=== PATIENT | female | born 1985 | race African-American/Black ===

== ENCOUNTER 2016-09-07 16:08 | Emergency (ER) | payer MEDICAID ==
[~2016-09-07] VITALS: Ht 162.6 cm; Wt 68.0 kg
[2016-09-07] MEDS ORDERED: MORPHINE SULFATE 4 MG/ML CPJ (NOT FOR IM USE) IV STA (16:58)
[2016-09-07] MEDS ORDERED: SODIUM CHLORIDE 0.9% 1,000 ML IV ONE (16:58)
[2016-09-07] MEDS ORDERED: ONDANSETRON HCL 4MG/2ML VIAL IV STA (16:58)
[2016-09-07 17:44] LABS: CLARITY URINE CLEAR (CLEAR); COLOR URINE YELLOW (YELLOW); GLUCOSE URINE NEGATIVE (NEGATIVE); KETONES URINE 4+ (NEGATIVE); LEUKOCYTE ESTERASE URINE 1+ (NEGATIVE); NITRITE URINE NEGATIVE (NEGATIVE); OCCULT BLOOD URINE NEGATIVE (NEGATIVE); PROTEIN URINE TRACE (NEGATIVE); SPECIFIC GRAVITY URINE 1.016 (1.005-1.030)
[2016-09-07 18:07] LABS: BACTERIA URINE TRACE; SQUAMOUS EPITHELIAL CELL URINE 1+ /lpf (RARE/1+); WBC URINE 0-2 /hpf (0-2)
[2016-09-07 18:13] LABS: BASOPHILS % 0.8 % (0.0-2.0); EOSINOPHILS % 0.6 % (0.0-5.0); HEMATOCRIT. 32.3 % (36.0-48.0); HEMOGLOBIN. 10.8 g/dL (12.0-16.0); LYMPHOCYTES % 16.5 % (20.0-50.0); MEAN CORPUSCULAR HEMOGLOBIN 29.8 pg (28.0-32.0); MEAN CORPUSCULAR HGB CONC 33.4 g/dL (31.0-37.0); MEAN CORPUSCULAR VOLUME 89.3 fL (81.0-99.0); MEAN PLATELET VOLUME 7.5 fl (7.4-10.4); MONOCYTES % 6.8 % (2.0-8.0); NEUTROPHILS % 75.3 % (40.0-76.0); PLATELET 321 x1000/uL (130-400); RED BLOOD CELL COUNT 3.61 mill/uL (4.2-5.4); RED CELL DISTRIBUTION WIDTH 14.1 % (11.6-14.6); WHITE BLOOD COUNT 9.9 x1000/uL (4.5-11.0)
[2016-09-07 18:19] LABS: CHLORIDE 102 mEq/L (98-107); INDEX HEMOLYSI 1 (1-3); INDEX ICTERIC 1 (1-4); INDEX LIPEMIC 1 (1-3); INR 1.1
[2016-09-07 18:26] LABS: ALANINE AMINOTRANSFERASE 12 IU/L (13-61); ALBUMIN 2.7 g/dL (3.4-5.0); ANION GAP 13; CALCIUM 8.3 mg/dL (8.5-10.1); CARBON DIOXIDE 25 mEq/L (21-32); LIPASE 172 IU/L (73-393); UREA NITROGEN BLOOD 3 mg/dL (7-21); eGFR > 60 mL/min (>60)
[2016-09-07 18:43] LABS: B-HCG QUANTITATIVE 7175 mIU/mL (<3)
[2016-09-07] MEDS ORDERED: MAGNESIUM/ALUMINUM HYDROXIDE/SIMETHICONE 30ML UDC PO STA ×2 (18:54→19:55)
[2016-09-07] MEDS ORDERED: FAMOTIDINE 20MG TABLET PO ONE ×2 (19:00→20:00)
[2016-09-07] MEDS ORDERED: RHO(D) IMMUNE GLOBULIN 300 MCG/SYR IM ONE (20:00)
[2016-09-07] MEDS ORDERED: POTASSIUM CHLORIDE 20MEQ TABLET SR PO ONE (20:15)
[2016-09-07 20:38] VITALS: BP 130/81
[2016-09-08] MEDS ORDERED: ONDA4TAB5 PO (17:27)
[2016-09-08] MEDS ORDERED: NITR100C2 PO (17:27)
[2016-09-08] MEDS ORDERED: PRENAVITE (17:27)
[2016-09-08] MEDS ORDERED: FAMO20TA8 PO (17:27)
== END 2016-09-07 20:42 | disposition home or self-care (01) ==
LOC: ER 16:22
DX: O23.43 Unspecified infection of urinary tract in pregnancy, third trimester (principal); N39.0 Urinary tract infection, site not specified; O99.513 Diseases of the respiratory system complicating pregnancy, third trimester; J45.909 Unspecified asthma, uncomplicated; Z3A.23 23 weeks gestation of pregnancy
CPT/HCPCS: 36415; 76705; 76805; 80053; 81001; 81025; 83690; 84702; 85025; 85610; 86850; 86900; 86901; 96361; 96374; 99285; J2405; J7030; 90384; J2270

== ENCOUNTER 2016-09-08 17:21 | Emergency (ER) | payer MEDICAID ==
[~2016-09-08] VITALS: Ht 160 cm; Wt 75.0 kg
[2016-09-08] MEDS ORDERED: ONDA4TAB5 PO (17:27)
[2016-09-08] MEDS ORDERED: FAMO20TA8 PO (17:27)
[2016-09-08] MEDS ORDERED: NITR100C2 PO (17:27)
[2016-09-08] MEDS ORDERED: PRENAVITE (17:27)
[2016-09-08] MEDS ORDERED: SODIUM CHLORIDE 0.9% 1,000 ML IV NR (18:45)
[2016-09-08] MEDS ORDERED: ACETAMINOPHEN 500MG TABLET PO ONE (19:00)
[2016-09-08] MEDS ORDERED: ONDANSETRON HCL 4MG/2ML VIAL IV ONE (19:00)
[2016-09-08 19:06] LABS: CLARITY URINE CLOUDY (CLEAR); COLOR URINE YELLOW (YELLOW); GLUCOSE URINE NEGATIVE (NEGATIVE); KETONES URINE 2+ (NEGATIVE); LEUKOCYTE ESTERASE URINE TRACE (NEGATIVE); NITRITE URINE NEGATIVE (NEGATIVE); OCCULT BLOOD URINE NEGATIVE (NEGATIVE); PROTEIN URINE NEGATIVE (NEGATIVE); SPECIFIC GRAVITY URINE 1.012 (1.005-1.030)
[2016-09-08 19:15] LABS: *AMPHETAMINES SCREEN URINE NEGATIVE (NEGATIVE); *BARBITURATES SCREEN URINE NEGATIVE (NEGATIVE); *BENZODIAZEPINES SCREEN URINE NEGATIVE (NEGATIVE); *COCAINE SCREEN URINE NEGATIVE (NEGATIVE); ECSTASY MDMA SCREEN URINE NEGATIVE (NEGATIVE); METHADONE URINE SCREEN NEGATIVE (NEGATIVE); OPIATES URINE SCREEN NEGATIVE (NEGATIVE); PHENCYCLIDINE URINE SCREEN NEGATIVE (NEGATIVE)
[2016-09-08 19:16] LABS: CANNABINOID URINE SCREEN PRESUMTIVE POSITIVE (NEGATIVE)
[2016-09-08 19:23] LABS: BASOPHILS % 0.3 % (0.0-2.0); EOSINOPHILS % 1.1 % (0.0-5.0); HEMATOCRIT. 33.5 % (36.0-48.0); HEMOGLOBIN. 11.3 g/dL (12.0-16.0); LYMPHOCYTES % 20.6 % (20.0-50.0); MEAN CORPUSCULAR HEMOGLOBIN 29.6 pg (28.0-32.0); MEAN CORPUSCULAR HGB CONC 33.6 g/dL (31.0-37.0); MEAN CORPUSCULAR VOLUME 88.1 fL (81.0-99.0); MEAN PLATELET VOLUME 7.2 fl (7.4-10.4); PLATELET 343 x1000/uL (130-400); RED BLOOD CELL COUNT 3.81 mill/uL (4.2-5.4); RED CELL DISTRIBUTION WIDTH 14.1 % (11.6-14.6); WHITE BLOOD COUNT 8.9 x1000/uL (4.5-11.0)
[2016-09-08 19:29] LABS: PARTIAL THROMBOPLASTIN TIME 25.4 sec (24.0-34.0); PROTHROMBIN TIME 10.9 sec
[2016-09-08 19:30] LABS: ALBUMIN 2.8 g/dL (3.4-5.0); ANION GAP 14; CALCIUM 8.6 mg/dL (8.5-10.1); CARBON DIOXIDE 25 mEq/L (21-32); CHLORIDE 101 mEq/L (98-107); INDEX HEMOLYSI 1 (1-3); INDEX ICTERIC 1 (1-4); INDEX LIPEMIC 1 (1-3); LIPASE 209 IU/L (73-393); UREA NITROGEN BLOOD 5 mg/dL (7-21)
[2016-09-08 19:31] LABS: ETHANOL BLOOD < 10 mg/dL
[2016-09-08 19:33] LABS: ALANINE AMINOTRANSFERASE 14 IU/L (13-61); eGFR > 60 mL/min (>60)
[2016-09-08 19:38] LABS: TROPONIN I < 0.02 ng/mL (0.00-0.04)
[2016-09-08] MEDS ORDERED: VISCOUS LIDOCAINE 2% 15 ML UDC MM ONE (19:45)
[2016-09-08 19:49] LABS: BACTERIA URINE 1+
[2016-09-08 19:50] LABS: AMORPHOUS SEDIMENT URINE 1+ /lpf; RBC URINE 0-2 /hpf (0-2); SQUAMOUS EPITHELIAL CELL URINE 1+ /lpf (RARE/1+); WBC URINE 0-2 /hpf (0-2)
[2016-09-08] MEDS ORDERED: CEFTRIAXONE 1 G PREMIX 50 ML IV ONE (20:00)
[2016-09-08 20:05] LABS: B-HCG QUANTITATIVE 7361 mIU/mL (<3)
[2016-09-08] MEDS ORDERED: KCL 10MEQ/50ML PREMIX 50 ML IV ONE (20:30)
[2016-09-08] MEDS ORDERED: SODIUM CHLORIDE 0.9% 1,000 ML IV ONE (20:48)
[2016-09-08] MEDS ORDERED: VISCOUS LIDOCAINE 2% 15 ML UDC PO STA (21:41)
[2016-09-08] MEDS ORDERED: LANSOPRAZOLE 30MG DR CAPSULE PO ONE (21:45)
[2016-09-09 00:09] VITALS: BP 121/80
== END 2016-09-09 00:16 | disposition home or self-care (01) ==
LOC: ER 17:22
DX: O23.42 Unspecified infection of urinary tract in pregnancy, second trimester (principal); O99.322 Drug use complicating pregnancy, second trimester; F12.10 Cannabis abuse, uncomplicated; K21.9 Gastro-esophageal reflux disease without esophagitis; E87.6 Hypokalemia; Z3A.21 21 weeks gestation of pregnancy
CPT/HCPCS: 36415; 80053; 80305; 81001; 81025; 83690; 84484; 84702; 85025; 85610; 85730; 93005; 96361; 96374; 96375; 99284; G0482; J0696; J2405; J3480; J7030; Z7610

== ENCOUNTER 2016-10-05 11:03 | Observation (INO) | payer MEDICAID ==
[~2016-10-05] VITALS: Ht 160 cm; Wt 77.1 kg
[~2016-10-05 11:03] MED LIST: FAMO20TA8 PO; NITR100C2 PO; ONDA4TAB5 PO; PRENAVITE
[2016-10-05] MEDS ORDERED: DEXT 5%/LACTATED RINGERS 1,000 ML IV SCH (11:30)
[2016-10-05] MEDS ORDERED: ONDANSETRON HCL 4MG/2ML VIAL IV SCH (11:30)
[2016-10-05 12:16] LABS: BASOPHILS % 0.5 % (0.0-2.0); EOSINOPHILS % 0.3 % (0.0-5.0); HEMATOCRIT. 33.9 % (36.0-48.0); HEMOGLOBIN. 11.1 g/dL (12.0-16.0); LYMPHOCYTES % 12.3 % (20.0-50.0); MEAN CORPUSCULAR HEMOGLOBIN 28.9 pg (28.0-32.0); MEAN CORPUSCULAR HGB CONC 32.7 g/dL (31.0-37.0); MEAN CORPUSCULAR VOLUME 88.3 fL (81.0-99.0); MEAN PLATELET VOLUME 8.2 fl (7.4-10.4); MONOCYTES % 4.2 % (2.0-8.0); NEUTROPHILS % 82.7 % (40.0-76.0); PLATELET 311 x1000/uL (130-400); RED BLOOD CELL COUNT 3.84 mill/uL (4.2-5.4); RED CELL DISTRIBUTION WIDTH 14.4 % (11.6-14.6); WHITE BLOOD COUNT 14.9 x1000/uL (4.5-11.0)
[2016-10-05 12:33] LABS: CLARITY URINE CLEAR (CLEAR); COLOR URINE YELLOW (YELLOW); GLUCOSE URINE TRACE (NEGATIVE); KETONES URINE 1+ (NEGATIVE); LEUKOCYTE ESTERASE URINE NEGATIVE (NEGATIVE); NITRITE URINE NEGATIVE (NEGATIVE); OCCULT BLOOD URINE NEGATIVE (NEGATIVE); PH URINE >=9.0 (4.5-8.0); PROTEIN URINE 2+ (NEGATIVE); SPECIFIC GRAVITY URINE 1.013 (1.005-1.030)
[2016-10-05 12:40] LABS: CARBON DIOXIDE 28 mEq/L (21-32); CHLORIDE 105 mEq/L (98-107)
[2016-10-05 12:41] LABS: ALANINE AMINOTRANSFERASE 13 IU/L (13-61); ALBUMIN 2.9 g/dL (3.4-5.0); ANION GAP 11; INDEX HEMOLYSI 2 (1-3); INDEX ICTERIC 1 (1-4); INDEX LIPEMIC 1 (1-3); UREA NITROGEN BLOOD 5 mg/dL (7-21); eGFR > 60 mL/min (>60)
[2016-10-05 12:59] LABS: *AMPHETAMINES SCREEN URINE NEGATIVE (NEGATIVE); *BARBITURATES SCREEN URINE NEGATIVE (NEGATIVE); *BENZODIAZEPINES SCREEN URINE NEGATIVE (NEGATIVE); *COCAINE SCREEN URINE NEGATIVE (NEGATIVE); ECSTASY MDMA SCREEN URINE NEGATIVE (NEGATIVE); METHADONE URINE SCREEN NEGATIVE (NEGATIVE); OPIATES URINE SCREEN NEGATIVE (NEGATIVE); PHENCYCLIDINE URINE SCREEN NEGATIVE (NEGATIVE); SQUAMOUS EPITHELIAL CELL URINE 1+ /lpf (RARE/1+)
[2016-10-05 13:00] LABS: RBC URINE NONE SEEN /hpf (0-2); WBC URINE 0-2 /hpf (0-2)
[2016-10-05 13:01] LABS: BACTERIA URINE 1+; CANNABINOID URINE SCREEN PRESUMTIVE POSITIVE (NEGATIVE); YEAST URINE 1+
[2016-10-05] MEDS ORDERED: CITRIC ACID/SODIUM CITRATE SOLN 30ML UDC PO NR (13:30)
[2016-10-05 13:33] LABS: AMYLASE 117 IU/L (25-115); INDEX HEMOLYSI 2 (1-3); LIPASE 230 IU/L (73-393)
== END 2016-10-05 13:50 | disposition home or self-care (01) ==
LOC: L&D 11:03
PROVIDERS: ADMIT Obstetrics & Gynecology; ATTEND Obstetrics & Gynecology
DX: O26.893 Other specified pregnancy related conditions, third trimester (principal); R10.10 Upper abdominal pain, unspecified; Z3A.00 Weeks of gestation of pregnancy not specified
CPT/HCPCS: 36415; 80053; 80305; 80349; 81001; 82150; 83690; 85025; 96374; G0378; J2405; J7121

== ENCOUNTER 2016-10-05 13:54 | Emergency (ER) | payer MEDICAID | END 2016-10-05 14:45 | disposition left against medical advice (07) | LOC: ER 14:40 | DX: R11.10 Vomiting, unspecified (principal); Z53.21 Procedure and treatment not carried out due to patient leaving prior to being seen by health care provider ==

== ENCOUNTER 2016-10-06 02:20 | Observation (INO) | payer MEDICAID ==
[~2016-10-06] VITALS: Ht 160 cm; Wt 61.2 kg
[~2016-10-06 02:20] MED LIST changes: -NITR100C2 PO; -ONDA4TAB5 PO
== END 2016-10-06 03:29 | disposition home or self-care (01) ==
LOC: L&D 02:20
PROVIDERS: ADMIT Obstetrics & Gynecology; ATTEND Obstetrics & Gynecology
DX: O21.2 Late vomiting of pregnancy (principal); O26.893 Other specified pregnancy related conditions, third trimester; R10.84 Generalized abdominal pain; R12 Heartburn; Z3A.28 28 weeks gestation of pregnancy
CPT/HCPCS: G0378

== ENCOUNTER 2016-10-06 03:34 | Emergency (ER) | payer MEDICAID ==
[~2016-10-06] VITALS: Ht 160 cm; Wt 75.0 kg
[2016-10-06] MEDS ORDERED: OMEPRAZOLE 20MG CAPSULE EXTENDED RELEASE PO ONE (04:30)
[2016-10-06] MEDS ORDERED: METOCLOPRAMIDE HCL 10MG/2ML VIAL IV STA (04:38)
[2016-10-06] MEDS ORDERED: SODIUM CHLORIDE 0.9% 1,000 ML IV ONE (04:45)
[2016-10-06] MEDS ORDERED: MAGNESIUM/ALUMINUM HYDROXIDE/SIMETHICONE 30ML UDC PO ONE (06:00)
[2016-10-06 06:30] VITALS: BP 148/89
== END 2016-10-06 06:48 | disposition home or self-care (01) ==
LOC: ER 03:35
DX: O26.893 Other specified pregnancy related conditions, third trimester (principal); K21.9 Gastro-esophageal reflux disease without esophagitis; J45.909 Unspecified asthma, uncomplicated; G89.29 Other chronic pain; Z3A.28 28 weeks gestation of pregnancy
CPT/HCPCS: 96361; 96374; 99284; J2765; J7030

== ENCOUNTER 2017-01-25 12:44 | Emergency (ER) | payer MEDICAID ==
[~2017-01-25] VITALS: Ht 160 cm; Wt 63.0 kg
[2017-01-25] MEDS ORDERED: MORPHINE SULFATE 4 MG/ML CPJ (NOT FOR IM USE) IV STA (13:03)
[2017-01-25] MEDS ORDERED: ONDANSETRON HCL 4MG/2ML VIAL IV STA (13:03)
[2017-01-25] MEDS ORDERED: SODIUM CHLORIDE 0.9% 1,000 ML IV ONE ×2 (13:03→16:15)
[2017-01-25 13:20] LABS: BASOPHILS % 0.9 % (0.0-2.0); EOSINOPHILS % 0.4 % (0.0-5.0); HEMATOCRIT. 37.7 % (36.0-48.0); HEMOGLOBIN. 12.4 g/dL (12.0-16.0); LYMPHOCYTES % 32.1 % (20.0-50.0); MEAN PLATELET VOLUME 7.4 fl (7.4-10.4); MONOCYTES % 11.6 % (2.0-8.0); PLATELET 387 x1000/uL (130-400); RED BLOOD CELL COUNT 4.59 mill/uL (4.2-5.4); RED CELL DISTRIBUTION WIDTH 16.6 % (11.6-14.6)
[2017-01-25 13:28] LABS: CLARITY URINE CLEAR (CLEAR); COLOR URINE YELLOW (YELLOW); GLUCOSE URINE NEGATIVE (NEGATIVE); KETONES URINE 4+ (NEGATIVE); LEUKOCYTE ESTERASE URINE TRACE (NEGATIVE); NITRITE URINE NEGATIVE (NEGATIVE); OCCULT BLOOD URINE NEGATIVE (NEGATIVE); PH URINE >=9.0 (4.5-8.0); PROTEIN URINE 1+ (NEGATIVE); SPECIFIC GRAVITY URINE 1.027 (1.005-1.030); UROBILINOGEN URINE 0.2 E.U./dL (0.2-1.0)
[2017-01-25 13:35] LABS: CARBON DIOXIDE 25 mEq/L (21-32); CHLORIDE 92 mEq/L (98-107)
[2017-01-25 13:46] LABS: HCG SCREEN NEGATIVE
[2017-01-25] MEDS ORDERED: POTASSIUM CHLORIDE 20MEQ/PACKET PO ONE (14:15)
[2017-01-25] MEDS ORDERED: POTASSIUM CHLORIDE 20MEQ TABLET SR PO ONE (14:30)
[2017-01-25] MEDS ORDERED: FAMOTIDINE 20MG/2ML VIAL IV ONE (14:45)
[2017-01-25] MEDS ORDERED: MORPHINE SULFATE 4 MG/ML CPJ (NOT FOR IM USE) IV ONE (14:45)
[2017-01-25 18:33] VITALS: BP 122/56
== END 2017-01-25 18:40 | disposition home or self-care (01) ==
LOC: ER 13:34
DX: E87.6 Hypokalemia (principal); K59.00 Constipation, unspecified; J45.909 Unspecified asthma, uncomplicated; R10.84 Generalized abdominal pain; R11.10 Vomiting, unspecified
CPT/HCPCS: 36415; 74176; 80053; 81001; 83690; 84703; 85025; 96361; 96374; 96375; 96376; 99285; J2270; J2405; J3490; J7030; Z7610

== ENCOUNTER 2017-05-29 09:56 | Emergency (ER) | payer MEDICAID ==
[~2017-05-29] VITALS: Ht 167.6 cm; Wt 65.0 kg
[2017-05-29] MEDS ORDERED: ONDANSETRON HCL 4MG/2ML VIAL IV STA (10:50)
[2017-05-29] MEDS ORDERED: KETOROLAC 30MG/ML VIAL IV STA (10:50)
[2017-05-29] MEDS ORDERED: SODIUM CHLORIDE 0.9% 1,000 ML IV ONE (10:50)
[2017-05-29] MEDS ORDERED: FAMOTIDINE 20MG/2ML VIAL IV ONE (11:00)
[2017-05-29] MEDS ORDERED: OMEPRAZOLE 20MG CAPSULE EXTENDED RELEASE PO ONE (11:00)
[2017-05-29 11:17] LABS: BASOPHILS % 0.5 % (0.0-2.0); EOSINOPHILS % 0.3 % (0.0-5.0); HEMATOCRIT. 36.9 % (36.0-48.0); HEMOGLOBIN. 12.6 g/dL (12.0-16.0); LYMPHOCYTES % 12.5 % (20.0-50.0); MEAN CORPUSCULAR HEMOGLOBIN 28.9 pg (28.0-32.0); MEAN CORPUSCULAR VOLUME 84.5 fL (81.0-99.0); MEAN PLATELET VOLUME 7.6 fl (7.4-10.4); MONOCYTES % 4.2 % (2.0-8.0); NEUTROPHILS % 82.5 % (40.0-76.0); PLATELET 317 x1000/uL (130-400); RED BLOOD CELL COUNT 4.37 mill/uL (4.2-5.4); RED CELL DISTRIBUTION WIDTH 17.2 % (11.6-14.6)
[2017-05-29 11:22] LABS: CARBON DIOXIDE 27 mEq/L (21-32); CHLORIDE 105 mEq/L (98-107)
[2017-05-29] MEDS ORDERED: ONDANSETRON HCL 4MG/2ML VIAL IV ONE ×2 (12:15→14:30)
[2017-05-29] MEDS ORDERED: MORPHINE SULFATE 2 MG/ML CPJ (NOT FOR IM USE) IV ONE (12:15)
[2017-05-29 12:26] LABS: HCG SCREEN NEGATIVE
[2017-05-29] MEDS ORDERED: MORPHINE SULFATE 4 MG/ML CPJ (NOT FOR IM USE) IV ONE (14:30)
[2017-05-29 14:41] VITALS: BP 120/75
== END 2017-05-29 15:55 | disposition home or self-care (01) ==
LOC: ER 10:10
DX: R10.13 Epigastric pain (principal); R11.2 Nausea with vomiting, unspecified; R19.7 Diarrhea, unspecified; J45.909 Unspecified asthma, uncomplicated
CPT/HCPCS: 36415; 80053; 83690; 84703; 85025; 96361; 96374; 96375; 96376; 99284; J1885; J2270; J2405; J3490; J7030; Z7610

== ENCOUNTER 2017-07-01 12:27 | Emergency (ER) | payer MEDICAID ==
[~2017-07-01] VITALS: Ht 165.1 cm; Wt 64.0 kg
[2017-07-01] MEDS ORDERED: ONDANSETRON HCL 4MG/2ML VIAL IV STA (15:13)
[2017-07-01] MEDS ORDERED: MORPHINE SULFATE 4 MG/ML CPJ (NOT FOR IM USE) IV STA (15:13)
[2017-07-01] MEDS ORDERED: SODIUM CHLORIDE 0.9% 1,000 ML IV ONE (15:13)
[2017-07-01] MEDS ORDERED: FAMOTIDINE 20MG/2ML VIAL IV ONE (15:15)
[2017-07-01 15:53] LABS: HEMATOCRIT. 37.4 % (36.0-48.0); HEMOGLOBIN. 12.3 g/dL (12.0-16.0); INR 1.1; MEAN CORPUSCULAR HEMOGLOBIN 29.1 pg (28.0-32.0); MEAN CORPUSCULAR VOLUME 87.9 fL (81.0-99.0); MEAN PLATELET VOLUME 7.3 fl (7.4-10.4); PLATELET 374 x1000/uL (130-400); PROTHROMBIN TIME 11.4 sec (9.4-11.6); RED BLOOD CELL COUNT 4.25 mill/uL (4.2-5.4); RED CELL DISTRIBUTION WIDTH 15.6 % (11.6-14.6)
[2017-07-01 15:59] LABS: HCG SCREEN POSITIVE
[2017-07-01 16:04] LABS: CARBON DIOXIDE 23 mEq/L (21-32); CHLORIDE 104 mEq/L (98-107)
[2017-07-01 16:49] LABS: PLATELET ESTIMATE NORMAL
[2017-07-01 17:49] LABS: CLARITY URINE CLEAR (CLEAR); COLOR URINE YELLOW (YELLOW); KETONES URINE 4+ (NEGATIVE); LEUKOCYTE ESTERASE URINE NEGATIVE (NEGATIVE); NITRITE URINE NEGATIVE (NEGATIVE); OCCULT BLOOD URINE NEGATIVE (NEGATIVE); PH URINE >=9.0 (4.5-8.0); PROTEIN URINE TRACE (NEGATIVE); SPECIFIC GRAVITY URINE 1.021 (1.005-1.030); UROBILINOGEN URINE 0.2 E.U./dL (0.2-1.0)
[2017-07-01] MEDS ORDERED: ACETAMINOPHEN 325MG TABLET PO ONE (19:00)
[2017-07-01] MEDS ORDERED: ONDANSETRON HCL 4MG/2ML VIAL IV ONE (19:15)
[2017-07-01] MEDS ORDERED: MORPHINE SULFATE 4 MG/ML CPJ (NOT FOR IM USE) IV ONE (19:15)
[2017-07-02] MEDS ORDERED: ACETAMINOPHEN 650MG SUPP PR ONE (01:00)
[2017-07-02] MEDS ORDERED: ONDANSETRON HCL 4MG/2ML VIAL IV ONE (01:00)
[2017-07-02] MEDS ORDERED: SODIUM CHLORIDE 0.9% 1,000 ML IV ONE ×2 (01:00→05:15)
[2017-07-02] MEDS ORDERED: DIPHENHYDRAMINE 50MG/ML VIAL IV ONE (04:45)
[2017-07-02 05:31] VITALS: BP 155/93
[2017-07-02] MEDS ORDERED: ACETAMINOPHEN 325MG TABLET PO ONE (09:00)
[2017-07-02] MEDS ORDERED: METOCLOPRAMIDE HCL 10MG/2ML VIAL IV ONE (09:30)
== END 2017-07-02 10:07 | disposition left against medical advice (07) ==
LOC: ER 13:04
DX: O26.899 Other specified pregnancy related conditions, unspecified trimester (principal); R10.84 Generalized abdominal pain; J45.909 Unspecified asthma, uncomplicated; Z3A.00 Weeks of gestation of pregnancy not specified; Z87.19 Personal history of other diseases of the digestive system
CPT/HCPCS: 36415; 74181; 76801; 80053; 81001; 84702; 84703; 85025; 85610; 87804; 96361; 96374; 96375; 96376; 99285; J1200; J2270; J2405; J3490; J7030

== ENCOUNTER 2017-08-04 12:09 | Emergency (ER) | payer MEDICAID ==
[~2017-08-04] VITALS: Ht 160 cm; Wt 59.0 kg
[2017-08-04] MEDS ORDERED: ONDANSETRON HCL 4MG/2ML VIAL IV STA ×2 (15:59→19:33)
[2017-08-04] MEDS ORDERED: SODIUM CHLORIDE 0.9% 1,000 ML IV ONE (15:59)
[2017-08-04] MEDS ORDERED: KETOROLAC 30MG/ML VIAL IV STA (15:59)
[2017-08-04 16:16] LABS: BASOPHILS % 0.7 % (0.0-2.0); EOSINOPHILS % 3.1 % (0.0-5.0); HEMATOCRIT. 39.9 % (36.0-48.0); HEMOGLOBIN. 13.6 g/dL (12.0-16.0); LYMPHOCYTES % 26.3 % (20.0-50.0); MEAN CORPUSCULAR HEMOGLOBIN 29.5 pg (28.0-32.0); MEAN CORPUSCULAR VOLUME 86.7 fL (81.0-99.0); MEAN PLATELET VOLUME 7.1 fl (7.4-10.4); MONOCYTES % 5.5 % (2.0-8.0); NEUTROPHILS % 64.4 % (40.0-76.0); PLATELET 426 x1000/uL (130-400); RED CELL DISTRIBUTION WIDTH 14.9 % (11.6-14.6)
[2017-08-04 16:28] LABS: INR 1.1; PROTHROMBIN TIME 11.3 sec (9.4-11.6)
[2017-08-04 16:30] LABS: CHLORIDE 96 mEq/L (98-107)
[2017-08-04 16:40] LABS: HCG SCREEN POSITIVE
[2017-08-04] MEDS ORDERED: POTASSIUM CHLORIDE 20MEQ TABLET SR PO ONE (19:15)
[2017-08-04] MEDS ORDERED: KCL 20MEQ/100ML PREMIX 100 ML IV ONE (19:15)
[2017-08-04] MEDS ORDERED: MORPHINE SULFATE 4 MG/ML CPJ (NOT FOR IM USE) IV STA (19:33)
[2017-08-04 19:41] LABS: CLARITY URINE CLEAR (CLEAR); COLOR URINE DARK YELLOW (YELLOW); KETONES URINE 3+ (NEGATIVE); LEUKOCYTE ESTERASE URINE NEGATIVE (NEGATIVE); NITRITE URINE NEGATIVE (NEGATIVE); OCCULT BLOOD URINE NEGATIVE (NEGATIVE); PH URINE 7.5 (4.5-8.0); PROTEIN URINE 1+ (NEGATIVE); SPECIFIC GRAVITY URINE 1.024 (1.005-1.030)
[2017-08-04 19:58] LABS: *AMPHETAMINES SCREEN URINE NEGATIVE (NEGATIVE); *BARBITURATES SCREEN URINE NEGATIVE (NEGATIVE); *BENZODIAZEPINES SCREEN URINE NEGATIVE (NEGATIVE); *COCAINE SCREEN URINE NEGATIVE (NEGATIVE); METHADONE URINE SCREEN NEGATIVE (NEGATIVE); OPIATES URINE SCREEN NEGATIVE (NEGATIVE); PHENCYCLIDINE URINE SCREEN NEGATIVE (NEGATIVE)
[2017-08-04 20:09] LABS: CANNABINOID URINE SCREEN PRESUMTIVE POSITIVE (NEGATIVE)
[2017-08-04] MEDS ORDERED: IBUPROFEN 600MG TABLET PO ONE (21:15)
[2017-08-04] MEDS ORDERED: POTASSIUM CHLORIDE 20MEQ/PACKET PO ONE (21:15)
[2017-08-04 22:02] VITALS: BP 133/76
== END 2017-08-04 22:02 | disposition home or self-care (01) ==
LOC: ER 12:13
DX: R10.33 Periumbilical pain (principal); E87.6 Hypokalemia; F12.10 Cannabis abuse, uncomplicated; J45.909 Unspecified asthma, uncomplicated
CPT/HCPCS: 36415; 74176; 80053; 80305; 81003; 83690; 84702; 84703; 85025; 85610; 96361; 96365; 96366; 96375; 96376; 99285; J1885; J2270; J2405; J3480; J7030; Z7610